=== PATIENT | male | born 1985 | race Caucasian/White ===

== ENCOUNTER 2023-10-18 13:27 | Emergency (ER) | payer BC ==
[~2023-10-18] VITALS: Ht 170.2 cm; Wt 80.3 kg
[2023-10-18 13:52] VITALS: BP 125/87; PULSE 67; RESP 15; TEMP 97.7; O2SAT 100
[2023-10-18] MEDS ORDERED: predniSONE 20 MG TAB PO STA (15:09)
[2023-10-18] MEDS ORDERED: diphenhydrAMINE 50 MG CAP PO STA (15:09)
[2023-10-18] MEDS ORDERED: LORA-1048 PO (17:28)
[2023-10-18] MEDS ORDERED: DIPH25TA53 PO (17:28)
[2023-10-18] MEDS ORDERED: PRED20TA5 PO (17:28)
[2023-10-18 17:37] VITALS: BP 125/87; PULSE 67; RESP 15; TEMP 97.7; O2SAT 100
== END 2023-10-18 17:38 | disposition home or self-care (01) ==
LOC: MED 13:27
DX: R03.0 Elevated blood-pressure reading, without diagnosis of hypertension (principal); F41.9 Anxiety disorder, unspecified; R06.02 Shortness of breath; Z79.899 Other long term (current) drug therapy
CPT/HCPCS: 70360; 71045; 99284; J7512; Q0163